=== PATIENT | female | born 1990 | race Caucasian/White ===

== ENCOUNTER 2021-11-22 13:33 | Emergency (ER) | payer OTHER ==
[~2021-11-22] VITALS: Ht 177.8 cm; Wt 113.4 kg
--- NOTE | 2021-11-22 14:07 | NUR ---
L BACK OFF THE KNEE DISCOMFORT SINCE YESTERDAY WHILE AMBULATING. PT IS 34 WK GESTATION. CONCERNED ABOUT A 4 HOUR FLIGHT TODAY. SENT BY URGENT CARE TO R/O DVT. PATIENT CHANGED INTO GOWN, RESTING COMFORTABLE IN BED. WILL CONTINUE MONOTORING. AWAITING ER MD CRUZ.
--- NOTE | 2021-11-22 14:10 | NUR ---
AT [facility]
--- NOTE | 2021-11-22 14:23 | NUR ---
U/S TECH AT BEDSIDE FOR RLE DUPLEX ULTRASOUND.
[2021-11-22 14:54] VITALS: BP 121/74
--- NOTE | 2021-11-22 14:54 | NUR ---
Patient discharged to home in stable condition. Written and verbal after care instructions given. Patient verbalizes understanding of instruction.
== END 2021-11-22 14:56 | disposition home or self-care (01) ==
LOC: ER 14:00
DX: M79.605 Pain in left leg (principal); M25.562 Pain in left knee; F32.9 Major depressive disorder, single episode, unspecified; F41.9 Anxiety disorder, unspecified; E03.9 Hypothyroidism, unspecified
CPT/HCPCS: 93970-TC